=== PATIENT | male | born 1940 | race Caucasian/White ===

== ENCOUNTER 2024-05-08 00:31 | Observation (INO) | payer MEDICARE, OTHER, SELFPAY ==
[2024-05-07 19:06] VITALS: BP 156/94
[2024-05-07 19:31] LABS: % Basophils 0.3 % (0-2); % Eosinophils 1.7 % (0-6); % Immature Granulocytes 0.4 % (0-0.5); % Monocytes 7.5 % (1.7-9.3); % Neutrophils 71.1 % (42.2-75.2); Absolute Eosinophils 0.1 10^3/uL (0-0.7); Absolute Lymphocytes 1.5 10^3/uL (1.2-3.4); Absolute Monocytes 0.6 10^3/uL (0.1-0.6); Absolute Neutrophils 5.5 10^3/uL (1.4-6.5); Hematocrit 48.3 % (39.0-52.0); Hemoglobin 16.4 g/dL (13.0-18.0); Mean Corpuscular Hgb 30.4 pg (27.0-31.0); Mean Corpuscular Volume 89.6 fL (80.0-94.0); Nucleated Red Blood Cells % 0 % (-); Platelet Count 175 10^3/uL (130-400); Red Blood Cell Count 5.39 10^6/uL (4.70-6.10); Red Cell Dist. Width 13.9 % (11.5-14.5); White Blood Cell Count 7.7 10^3/uL (4.8-10.8)
[2024-05-07 19:49] LABS: ALT (SGPT) 36 U/L (0-50); AST (SGOT) 30 U/L (17-59); Albumin 4.3 g/dl (3.5-5.0); Alkaline Phosphatase 64 U/L (38-126); Blood Urea Nitrogen 25 mg/dl (9-20); Calcium 9.9 mg/dl (8.4-10.2); Carbon Dioxide 20 mmol/L (22-30); Glucose 98 mg/dl (70-99); Total Protein 6.8 g/dl (6.3-8.2); eGFR > 60.00
[2024-05-07 19:56] LABS: Chloride 106 mmol/L (98-107); Potassium 4.2 mmol/L (3.5-5.1); Sodium 137 mmol/L (135-145)
[2024-05-07 22:09] VITALS: BP 143/79
[2024-05-07 22:23] VITALS: BMI 25.4
[2024-05-07 22:30] VITALS: BP 151/91
[2024-05-07 23:00] VITALS: BP 133/93
--- NOTE | 2024-05-07 23:23 | ED.GENMED ---
History of Present Illness
General
Chief Complaint: Gait Dysfunction
Source: patient and previous hospital records (ED visit May 2021 with complaints of chest pain. Follow-up unremarkable echocardiogram, unremarkable nuclear stress test and Holter monitor June 2021 showing frequent PACs otherwise unremarkable.)
Exam Limitations: none
Time Seen by Provider: 05/07/24 22:41
Nursing documentation reviewed up to this point in time: agreed with
History of Present Illness
History of Present Illness:
This is an 84-year-old gentleman who resides at home independently. Generally has no limitations in ADLs. He has history of hypertension, hyperlipidemia, BPH and remote history of CVA 14 years ago. Chronically maintained on low-dose aspirin.
He complains of 3 to 4-day history of intermittent dizziness described as a sense of spinning most noted when he lies down to bed and occasionally with rolling over or turning his head quickly. Today however dizziness has worsened accompanied with
feeling off balance, unsteady gait. He has not fallen but he does admit to feeling quite unsteady more so when he attempts to bend over or sit down he has to hold on as his body starts to list.
He denies headache, no nausea nor vomiting, no vision difficulty. He denies chest pain, no palpitations, no coughing or shortness of breath. Appetite has been good.
He states his previous stroke 14 years ago he had somewhat similar dizziness but that stroke was also accompanied with brief difficulty with his speech and also difficulty with writing. He has had no difficulty with his speech, no difficulty with
writing.
He does admit to occasional small bruises on his dorsal hands and forearms and thus occasionally takes his low-dose aspirin every other day instead of every day.
Past History
Past History
ED Past Medical History: Arrthythmia (Frequent PACs), CVA, HTN, Hypercholesterolemia and Other (BPH)
ED Past Surgical History: None
Social History
Tobacco: Non-smoker
Alcohol: None
Drug: None
Personal: ( 2-1/2 years ago)
Living: alone
Employment: Retired
Family History
Family History: Other (Noncontributory)
Phy Exam
Physical Exam
Physical Exam:
GENERAL: 84-year-old gentleman appears somewhat younger than stated age, bright and alert, pleasant, appears in no acute distress. Easily communicative.
EYE: pupils equal and reactive. Extraocular muscles intact. Anicteric
NECK: Supple, nontender, no meningismus, no significant adenopathy.
ENT: posterior pharynx is clear, oral mucosa is moist. TM clear b/l, nares patent.
CARDIAC: Regular rate and rhythm. no murmur.
LUNGS: Clear breath sounds bilaterally, no acute respiratory distress, no wheezes/rales/rhonchi
ABDOMEN: Soft, nondistended, without focal tenderness, no r/g, no cvat. normoactive BS.
NEUROLOGICAL: Alert and oriented x3, motor strength is 5/5 bilaterally. Gross sensation is intact. Positive Romberg's. Mildly antalgic gait.
SKIN: Warm and dry, normal color, skin intact. No rash.
MUSCULOSKELETAL: No C/C/E. peripheral pulses are full and equal b/l. No palpable tenderness.
PSYCH: Normal and appropriate interaction.
Scores
NIH Stroke Score
Level of Consciousness: 0 - Alert
LOC Questions: 0-Answers both correctly
LOC Commands: 0-Performs both correctly
Best Horizontal Gaze: 0-Normal
Visual Kendall: 0=Normal, no visual loss
Facial Palsy: 0=Normal, symmetrical
Motor - Right Arm: 0=No drift 10 seconds
Motor - Left Arm: 0=No drift 10 seconds
Motor - Right Le-No drift 5 seconds
Motor - Left Le-No drift 5 seconds
Limb Ataxia: 0-Absent
Sensation: 0-Normal
Best Language: 0-No aphasia
Dysarthria: 0-Normal
Extinction and Inattention: 0-No abnormality
Total Score:: 0
Course
Orders/Labs/Results
Orders:
Orders
05/07/24 19:11
CT Head W/o Iv Contrast Urgent
Comment:
Reason For Exam: balance issues since this morning
05/07/24 19:15
Complete Blood Count/With Diff Urgent
Comprehensive Metabolic Panel Urgent
05/07/24 22:43
EKG [Electrocardiogram (*1)] Urgent
Reason for Study: Vertigo / Dizzy
EKG- Treatment ONCE
Abnormal Lab Results
05/07/24
19:15
Lymphocytes % 19.0 L %
(20.5-51.1)
Carbon Dioxide 20 L mmol/L
(22-30)
BUN 25 H mg/dl
(9-20)
05/07/24 19:15
05/07/24 19:15
Vital Signs
Initial and Last Documented VS:
Initial Vital Signs
Temp Pulse Resp BP Pulse Ox
98.2 F 91 18 156/94 95
05/07/24 19:06 05/07/24 19:06 05/07/24 19:06 05/07/24 19:06 05/07/24 19:06
Last Documented Vital Signs
Temp Pulse Resp BP Pulse Ox
97.7 F 75 18 151/91 95
05/07/24 22:30 05/07/24 22:45 05/07/24 22:30 05/07/24 22:30 05/07/24 22:45
MDM/Problems Addressed
Differential Diagnosis Includes:
Significant concern for acute/subacute posterior circulation CVA/cerebellar CVA.
Other consideration is benign paroxysmal peripheral vertigo however, patient has multiple risk factors for CVA including hypertension, hyperlipidemia, previous CVA.
Concern for arrhythmia. History is not suggestive of orthostasis.
Labs thus far unremarkable.
CT of the head shows many small to moderate-sized chronic infarcts of both cerebellar hemispheres as well as several old bilateral cerebral strokes. 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 Mild calcific
atherosclerotic plaque in both intracranial vertebral arteries and moderate calcific plaque in the intracranial internal carotid arteries.
Will place on child monitor and check EKG.
Due to CT findings of multiple old strokes, significant concern for acute/subacute posterior circulation stroke.
Patient is at significant risk for recurrent stroke, therefore requires acute hospitalization for further evaluation/neurologic workup.
Chronic conditions affecting care: HTN and Neurological disorder
Acute Exacerbation and/or Progression of Chronic Illness: Neurological disorder
*Radiology
Radiology exam reviewed: radiology read reviewed
*Pulse Oximetry
Patient hypoxic: no
*EKG
Interpreted by ED Provider?: Yes
Comparison EKG: no changes (Unchanged from previous May 2021 save for several PACs are new compared to previous)
Rate: normal
Rhythm: sinus and PAC's
Soper: normal axis
Interval: normal interval
QRS Pattern: normal QRS
Ischemia: no ischemia
*Featherer Interpretation
Rate: normal
Rhythm: sinus and PAC's
*Critical Care Note
Total Time (30-74mins, 75-104mins- exclusive of procedures): Not Applicable
ED Attending Note
-
Portions of this chart may have been created with voice recognition software.� Occasional wrong word or��sound alike� substitutions may have occurred due to the inherent limitations of voice recognition software.
Discharge Plan
Departure
Patient Disposition: Admit
Date of Disposition: 05/07/24
Time of Disposition: 23:27
Admit to: Telemetry
Admit to doctor: Oracio
Presentation/result/management discussed w/ accepting MD/DO: Hospitalist
Condition: Fair
Discharge Problem:
acute/subacute posterior circulation CVA
Prescriptions:
No Action
multivitamin 1 EACH tablet
1 ea PO DAILY
atorvastatin [Lipitor] 40 MG tablet
20 mg PO QPM
aspirin 81 MG tablet,chewable
81 mg PO .EVERYOTHER
Patient Comments:
Patient reports he takes every other day.
lisinopril 40 MG tablet
10 mg PO DAILY
finasteride 5 MG tablet
5 mg PO DAILY
metoprolol tartrate 25 mg Tablet
25 mg PO DAILY
Referrals:
Bee Garcia MD [Family Provider] -
Interventions
Interventions:
*Risk Screen - Suicide Last Done: 05/07/24 19:06
*General Assessment Last Done: 05/07/24 19:06
*Neglect/Abuse Screening Last Done: 05/07/24 19:06
*ED COVID-19 Vaccine History Last Done: 05/07/24 19:06
ED- Neurological Assessment Last Done: 05/07/24 22:32
Discharge Date and Time
Print Language: SINHALA
[2024-05-08] VITALS (11 sets, daily range): BP systolic 108–166; BP diastolic 62–90; PULSE 73–102; BMI 25.3; BMI 25.4
--- NOTE | 2024-05-08 00:26 | HPS.HSE ---
Family Physician
-
Family Physician: Bee Garcia
Chief Complaint
-
Unsteady Gait
History of Present Illness
Patient is an 84y M with PMH significant for hypertension and prior CVA who presents to ED complaining of unsteady gait and dizziness. Patient states that he has felt unsteady on his feet for the past 2 days or so. He notes having to hld onto
furniture, etc as he is walking to prevent loss of balance. He denies any fall or injury. No LOC. He denies any chest pain, dyspnea, fevers / chills, etc.
Patient also reports room spinning sensation that occurs mostly when lying flat in bed at night. This lasts only a few seconds before resolving. This does not occur with side to side head movements.
Patient states that he had a prior stroke about 14 years ago. Symptoms at that time included dysarthria and R hand ataxia. These symptoms fully improved and he reports no chronic deficits.
Medical History
Past Medical History
Past Medical History: Reports Other
Additional Past Medical History:
Hypertension
ASCVD / Prior CVA
BPH
Dyslipidemia
Past Surgical History: Reports Other
Additional Past Surgical History:
T&A
Hernia Repair
R Wrist Surgery
Social History
Tobacco: Non-smoker
Alcohol: Occasional
Drug: None
Family History
Family History: Not pertinent
Allergies / Home Medications
Allergies reflects when Allergies were last updated in [facility].
Home Medications with original date entered in [facility]
Allergy/Medication List:
Allergies
Allergy/AdvReac Type Severity Reaction Status Date / Time
No Known Allergies Allergy Verified 05/07/24 22:24
Home Medications
aspirin 81 mg chewable tablet 81 mg PO .EVERYOTHER 06/20/21
atorvastatin 40 mg tablet (Lipitor) 20 mg PO QPM 06/20/21
finasteride 5 mg tablet 5 mg PO DAILY 06/20/21
lisinopril 40 mg tablet 10 mg PO DAILY 06/20/21
multivitamin 1 ea PO DAILY 06/20/21
metoprolol tartrate 25 mg tablet 25 mg PO DAILY 05/07/24
Review of Systems
-
History Source: Patient
A 12 point ROS was completed and negative except as noted: Yes
Constitutional: Denies Fever or Chills
Respiratory: Denies Cough or Trouble Breathing
Cardiac: Denies Chest Pain or Palpitations
Abdomen/GI: Denies Abdominal Pain, Nausea, Vomiting or Diarrhea
: Denies Dysuria or Frequency
Musculoskeletal: Denies Joint Pain or Edema
Neurological: Reports Dizzy and Other (unsteady gait); Denies Headache
Psych: Denies Depression or Anxiety
Physical Exam
Vital Signs
Vital Signs
Temp Pulse Resp BP Pulse Ox
97.7 F 67 18 133/93 95
05/07/24 22:30 05/07/24 23:45 05/07/24 22:30 05/07/24 23:00 05/07/24 23:45
Physical Exam
General: Other (84y M in no acute distress.)
HEENT: Moist mucous membranes and PERRLA
Respiratory: Clear; No Wheezes, Rales or Rhonchi
Cardiac: S1/S2 and Irregular Rhythm; No Murmur
GI: Soft, Non Tender, Non Distended and Normal Bowel Sounds
Musculoskeletal: No Clubbing, No Cyanosis and No Edema
Neuro: AO x 3 and Other (Strength intact and symmetric. Normal [id number] testing. Unsteady with ambulation.)
Laboratory Results
-
05/07/24 19:15
05/07/24 19:15
Laboratory Results
Total Bilirubin 1.0 mg/dl (0.2-1.3) 05/07/24 19:15
AST 30 U/L (17-59) 05/07/24 19:15
ALT 36 U/L (0-50) 05/07/24 19:15
Alkaline Phosphatase 64 U/L (38-126) 05/07/24 19:15
Impression/Plan
-
A/P: Patient is an 84y M with PMH significant for hypertension and prior CVA who presents to ED complaining of unsteady gait and room spinning.
Ataxia
Dizziness
ASCVD / Prio CVA(s)
- Observe overnight for further evaluation and treatment.
- CT done in the ED shows evidence of multiple, bilateral prior CVAs - including bilateral cerebellar CVAs.
- ASA and Plavix for now.
- Follow neurologic exam for changes.
- Neurology evaluation. MRI in AM.
- Check Echo given multiple / bilateral strokes - ? embolic focus.
- Monitor on telemetry overnight.
- Increase statin to high intensity.
Sinus Arrhythmia
- Patient with long history of sinus arrhythmia - presumably benign.
- Has had evaluation in the past including 48h Holter monitor with no evidence of A-Fib.
- Monitor on tele as noted above.
- Given strokes seen on imaging - ? candidate for Loop recorder, etc.
Benign Hypertension
- Continue current home medications for now.
- Adjust as needed for goal of normotension at discharge.
BPH
- Stable. Continue finasteride.
DVT Prophylaxis: SCDs
Code Status: Full
--- NOTE | 2024-05-08 06:07 | PTCARENOTE ---
Pt arrived 0110 from ED. Pt was able to ambulate from stretcher to bed. VSS. AAOX3. Neurological checks WNL. NIH scale 0. oriented to room and call booker. updated on plan of care. bed locked and in lowest position.
[2024-05-08 06:36] LABS: Hematocrit 45.5 % (39.0-52.0); Hemoglobin 15.6 g/dL (13.0-18.0); Mean Corp Hgb Conc. 34.3 g/dL (33.0-37.0); Mean Corpuscular Hgb 30.8 pg (27.0-31.0); Mean Corpuscular Volume 89.7 fL (80.0-94.0); Mean Platelet Volume 10.7 fL (7.4-10.4); Platelet Count 165 10^3/uL (130-400); Red Blood Cell Count 5.07 10^6/uL (4.70-6.10); Red Cell Dist. Width 13.8 % (11.5-14.5); White Blood Cell Count 7.3 10^3/uL (4.8-10.8)
[2024-05-08 07:27] LABS: Blood Urea Nitrogen 24 mg/dl (9-20); Calcium 9.6 mg/dl (8.4-10.2); Carbon Dioxide 21 mmol/L (22-30); Chloride 106 mmol/L (98-107); Estimated Creatinine Clearance 53 ml/min; Glucose 90 mg/dl (70-99); HDL Cholesterol 50 mg/dl; LDL Cholesterol, Calculated 56 mg/dl; Potassium 4.2 mmol/L (3.5-5.1); Sodium 137 mmol/L (135-145); Total Cholesterol 122 mg/dl (50-199); Triglyceride 82 mg/dl (10-149); Very Low Density Lipoprotein 16 mg/dl (0-30); eGFR > 60.00
[2024-05-08 07:52] LABS: TSH Reflex To Free T4 2.08 uIU/ml (0.47-4.68)
[2024-05-08] MEDS: PLAVIX 75 MG PO (08:13)
[2024-05-08] MEDS: ZESTRIL 10 MG PO (08:13)
[2024-05-08] MEDS: PROSCAR 5 MG PO (08:14)
[2024-05-08] MEDS: LOW STRENGTH ASPIRIN 81 MG PO (08:14)
--- NOTE | 2024-05-08 08:59 | W.PN.HOSP.TC ---
Today's Communication/Plan
-
see bold
Assessment / Plan
Assessment / Plan
#Ataxic gait
Brain MRI negative for acute stroke, does show chronic stroke within the right frontal, bilateral cerebellum, and left caudate/putamen
Discontinue Plavix since there is no stroke
Orthostatic vital signs negative
PT recommends home care
#Vertigo while laying down
Neurology suspects BPPV, resolved
#Dehydration
Gentle IV fluids
#Cognitive impairment
MOCA cognitive screen score = 19/30 (below normal of 26 or higher) w/ deficits with language, abstraction, delayed recall
Check TSH with reflex T4, B12 levels
Recommend outpatient neuropsychiatric evaluation
#History of stroke
Continue aspirin, statin
#Essential hypertension
Continue lisinopril, metoprolol
#BPH
Continue finasteride
DVT prophylaxis�subcu Lovenox
Full code
Physical Exam
General: No acute distress
HEENT: Normocephalic, Atraumatic, EOMI, MMM
Respiratory: Clear to Auscultation bilaterally
Cardiac: Normal S1/S2, Regular Rate and Rhythm
GI: Soft, Nontender, Nondistended, Normal Bowel Sounds
Extremities: No Clubbing, Cyanosis, or Edema
Neuro: Nonfocal/Grossly Intact
Psych: Calm, Cooperative
Derm: No Visible lesions
Anticipated Discharge: Within 24 hours
Subjective/Interval History
-
Date of Service: May 08, 2024
Patient reports vertigo with lying down. No lightheadedness or dizziness with standing. Still feels like his gait is unsteady, though improved from prior. No fever, no vomiting.
Objective Data
-
Labs:
Laboratory Results
05/08/24
05:47
WBC 7.3
Hgb 15.6
Hct 45.5
Plt Count 165
Sodium 137
Potassium 4.2
Chloride 106
Carbon Dioxide 21 L
BUN 24 H
Creatinine 1.1
Glucose 90
Calcium 9.6
Vital Signs:
Vital Signs
Temp Pulse Resp BP Pulse Ox
98.1 F 75 20 124/65 95
05/08/24 08:17 05/08/24 08:17 05/08/24 08:17 05/08/24 08:17 05/08/24 08:17
I&O
05/07/24 05/08/24 05/09/24
06:59 06:59 06:59
Intake Total 120 / 120
Balance 120 / 120
--- NOTE | 2024-05-08 10:32 | CM ---
Reviewed the chart notes and spoke with the patient at the bedside. The patient is admitted under observational status. The SHARMA letter was provided and explained. The patient had no questions with regards to the letter.
The patient resides alone in a third floor condo with elevator access. The patient has a cane, rolling walker, raised toilet seat, and toilet rails. The patient has had VN in the past, but could not recall the name of the agency. No SNF reported.
The patient confirmed his pharmacy of choice is the [facility]. CM continues to be available to patient/family and is monitoring medical plan for needs at discharge.
Plan: Discharge plans will depend on the patient's progress.
[2024-05-08 10:51] LABS: Glycohemoglobin (HgbA1c) 5.6 % (4.0-5.6)
[2024-05-08] MEDS: LOPRESSOR 25 MG PO (12:18)
--- NOTE | 2024-05-08 15:02 | PTOTSP ---
[facility] Evaluations
Oral/pharyngeal swallowing suspected to be within functional limits to continue regular, thin liquid diet at this time. Patient with elevated risk for dysphagia/aspiration given multiple strokes. Monitor closely for clinical signs concerning for
aspiration.
Quick Aphasia Battery Form 1 Wallisian overall score = 9.60. No aphasia. No dysarthria.
MOCA Version 8.1 Wallisian cognitive screener = 19/30 (normal 26 or greater) with mild changes to attention, abstraction, language, and delayed recall.
Recommend:
1. Regular, Thin Liquids
2. Medications as best tolerated
3. [facility] to f/u to determine if further instrumental testing warranted
4. Outpatient cognitive evaluation/tx
--- NOTE | 2024-05-08 15:48 | CON.NEURO ---
Neuro Assessment/Plan
Assessment
Not an acute stroke. Brain MRI imgs rev'd, agree chronic stroke right frontal, bilateral cerebellum, left caudate/putamen
BPPV, appears resolved.
orthostatic tachycardia.
supine bp 124/65, pulse 75
sit bp 133/75, pulse 75
stand 133/90, pulse 102
a little dry? bun 25, cre 1.1.
exam also with a little bit of Parkinsonism - does not appear symptomatic
Plan
IV fluids rehydration, then recheck orthostatic vs to see if resolved
if not then consider trial of midodrine.
Consultation
Order
Date of Consultation: 05/08/24
Requesting Provider: Kellie Jones
Reason for Consult: Dizziness, off balance
Subjective/Objective
Subjective Data
Date of Service: May 08, 2024
Patient is an 84y M with PMH significant for hypertension and prior CVA who presents to ED complaining of unsteady gait and dizziness. Patient states that he has felt unsteady on his feet for the past 2 days or so. He notes having to hold onto
furniture, etc as he is walking to prevent loss of balance. He denies any fall or injury. No LOC.
The room spins for ~10 seconds whenever he lays down, and then it resolves. does not occur when moving head from side to side. this seems to have resolved today. He also reports feeling 'woozy' for a few seconds whenever he sits up or stands up.
Objective Data
Vital Signs
Temp Pulse Resp BP Pulse Ox
36.8 C 70 18 108/62 96
05/08/24 15:44 05/08/24 15:44 05/08/24 15:44 05/08/24 15:44 05/08/24 15:44
Lab Results
05/08/24 05:47
05/08/24 05:47
Sodium 137 mmol/L (135-145) 05/08/24 05:47
Potassium 4.2 mmol/L (3.5-5.1) 05/08/24 05:47
BUN 24 mg/dl (9-20) H 05/08/24 05:47
Glucose 90 mg/dl (70-99) 05/08/24 05:47
Calcium 9.6 mg/dl (8.4-10.2) 05/08/24 05:47
LDL Cholesterol, Calc 56 mg/dl 05/08/24 05:47
Patient Allergies
No Known Allergies Allergy (Verified 05/07/24 22:24)
Physical Exam
-
Awake and alert
speech clear
VFF, EOMI, face symmetric
full strength b/l UE/LE
+bradykinesia and cogwheel more on the right
Medications
-
Active Medications
Generic Name Dose Route Start Last Admin
Trade Name Freq PRN Reason Stop Dose Admin
Acetaminophen 650 mg 05/08/24 01:37
Acetaminophen 325 Mg Tablet PO 06/05/24 01:36
Q4HPRN PRN
Mild Pain / Temp > 101
Aspirin 81 mg 05/08/24 08:00 05/08/24 08:14
Aspirin 81 Mg Chewable Tablet PO 06/05/24 07:59 81 mg
DAILY ALDO Administration
Atorvastatin Calcium 40 mg 05/08/24 18:00
Atorvastatin (Lipitor) 40 Mg Tablet PO 06/05/24 17:59
QPM ALDO
Clopidogrel Bisulfate 75 mg 05/08/24 08:00 05/08/24 08:13
Clopidogrel 75 Mg Tablet PO 06/05/24 07:59 75 mg
DAILY ALDO Administration
Finasteride 5 mg 05/08/24 08:00 05/08/24 08:14
Finasteride 5 Mg Tablet PO 06/05/24 07:59 5 mg
DAILY ALDO Administration
Lisinopril 10 mg 05/08/24 08:00 05/08/24 08:13
Lisinopril 10 Mg Tablet PO 06/05/24 07:59 10 mg
DAILY ALDO Administration
Metoprolol Tartrate 25 mg 05/08/24 08:28 05/08/24 12:18
Metoprolol 25 Mg Regular Release Tablet PO 06/05/24 07:59 25 mg
DAILY@1200 ALDO Administration
Home Medications
�Medication �Instructions �Recorded
aspirin 81 mg chewable tablet 81 mg PO .EVERYOTHER 06/20/21
atorvastatin 40 mg tablet (Lipitor) 20 mg PO QPM 06/20/21
finasteride 5 mg tablet 5 mg PO DAILY 06/20/21
lisinopril 40 mg tablet 10 mg PO DAILY 06/20/21
multivitamin 1 ea PO DAILY 06/20/21
metoprolol tartrate 25 mg tablet 25 mg PO DAILY 05/07/24
[2024-05-08] MEDS: NSS 1000 IV (16:14)
[2024-05-08] MEDS: LOVENOX 40 MG SC (17:19)
[2024-05-09 03:20] VITALS: BP 116/65
[2024-05-09] MEDS: NSS 1000 IV (05:27)
[2024-05-09 05:36] VITALS: BMI 25.7
[2024-05-09 07:55] VITALS: BP 112/76
[2024-05-09] MEDS: LOW STRENGTH ASPIRIN 81 MG PO (09:00)
[2024-05-09] MEDS: PROSCAR 5 MG PO (09:00)
[2024-05-09] MEDS: ZESTRIL 10 MG PO (09:00)
--- NOTE | 2024-05-09 09:06 | W.PN.HOSP.TC ---
Today's Communication/Plan
-
Discharge home today
Assessment / Plan
Assessment / Plan
#Ataxic gait
Brain MRI negative for acute stroke, does show chronic stroke within the right frontal, bilateral cerebellum, and left caudate/putamen
Discontinued Plavix since there is no stroke
Orthostatic vital signs negative
PT recommends home care
Medically stable for discharge today
#Vertigo while laying down
Neurology suspects BPPV, resolved
#Dehydration
Resolved with IV fluids
#Cognitive impairment
MOCA cognitive screen score = 19/30 (below normal of 26 or higher) w/ deficits with language, abstraction, delayed recall
TSH normal
Recommend outpatient neuropsychiatric evaluation, son informed
#History of stroke
Continue aspirin, statin
#Essential hypertension
Continue lisinopril, metoprolol
#BPH
Continue finasteride
#Hyperlipidemia
Continue statin
DVT prophylaxis�subcu Lovenox
Full code
Physical Exam
General: No acute distress
HEENT: Normocephalic, Atraumatic, EOMI, MMM
Respiratory: Clear to Auscultation bilaterally
Cardiac: Normal S1/S2, Regular Rate and Rhythm
GI: Soft, Nontender, Nondistended, Normal Bowel Sounds
Extremities: No Clubbing, Cyanosis, or Edema
Neuro: Nonfocal/Grossly Intact
Psych: Calm, Cooperative
Derm: No Visible lesions
Anticipated Discharge: Today
Subjective/Interval History
-
Date of Service: May 09, 2024
Patient's gait is improved. No lightheadedness or dizziness with standing. No fever, no vomiting.
Objective Data
-
Vital Signs:
Vital Signs
Temp Pulse Resp BP Pulse Ox
97.9 F 71 18 112/76 94
05/09/24 07:55 05/09/24 07:55 05/09/24 07:55 05/09/24 07:55 05/09/24 07:55
I&O
05/08/24 05/09/24 05/10/24
06:59 06:59 06:59
Intake Total 120 / 120 510 / 510
Balance 120 / 120 510 / 510
[2024-05-09 10:20] VITALS: BP 123/78; BP 126/78; BP 127/77; PULSE 111; PULSE 82; PULSE 92
--- NOTE | 2024-05-09 11:06 | CM ---
Patient seen bedside.
Patient agreeable to home with [facility] if needed.
Ambulating in room with some dizziness per patient.
Patient has transportation home.
PT recommending acute rehab.
Plan: home with possible VN vs outpatient therapy
[2024-05-09 11:13] VITALS: BP 105/69
--- NOTE | 2024-05-09 11:20 | W.DCSUMMARY ---
Discharge Summary
Discharge Data
Date of Admission: 05/08/24
Date of Discharge: 05/09/24
-
Pending Results: No
Hospital Course
Discharge diagnosis:
Ataxic gait
Resolved vertigo
Dehydration
Cognitive impairment
History of previous stroke
Essential hypertension
Benign prostatic hypertrophy
Hyperlipidemia
Consults: Neurology
Brain MRI:
No acute intracranial abnormality noted.
Mild parenchymal volume loss with small foci of encephalomalacia in the right frontal lobe and left parietal lobe. Infarctions within the bilateral cerebellar hemispheres as well as the left caudate/putamen.
Focus of blooming artifact along the right insula/subinsular white matter consistent with sequelae of prior hematoma/hemorrhage.
Hospital course:
84-year-old male with a past medical history of stroke, hypertension, hyperlipidemia, and BPH presented with intermittent vertigo and ataxic gait. Patient was seen in conjunction with neurology. Patient experiences intermittent vertigo while
laying down. Neurology suspects that he had BPPV that has resolved. Patient was found to have an ataxic gait. Brain MRI was negative for acute stroke, does show previous stroke with encephalomalacia. Neurology thought he may have been
dehydrated. He was given IV fluids, and his gait improved.
Patient was seen in conjunction with PT/OT, who recommended home care. Patient was found to have cognitive impairment. He scored 19 out of 30 on the MoCA. Normal is 26. Neurology notes that patient has some signs of parkinsonism on exam, however
he was not symptomatic. This was relayed to the son. Recommend that he undergo neuropsychiatric testing outpatient.
Patient is medically stable for discharge. He needs to follow-up with his primary care doctor in 1 week and neuropsychiatry in the office in 3-4 weeks.
Disposition: Home self-care
Discharge planning: Required 39 minutes
Discharge Plan
-
Patient Disposition: Home with Home Care
Discharge Diagnosis/Procedures: Weakness, dehydration, resolved vertigo, old stroke, cognitive impairment
Condition: Fair
Diet: Low Fat and Low Cholesterol
Activity: As tolerated
Driving Restrictions: As prior to admission
Other Services: VN and PT
Activity Restrictions/Additional Instructions:
You had testing that showed cognitive impairment.
Recommend you follow-up with neuropsychiatry in the office for official cognitive testing.
Recommend you take aspirin 81 mg daily, not every other day.
Follow-up with your primary care doctor in 1 week.
Referrals:
Micheal Pereyra PSY [Specified Professional Personl] - in two to three weeks
Bee Garcia MD [Family Provider] - in one week
Prescriptions:
Continued
multivitamin 1 EACH tablet
1 ea PO DAILY
atorvastatin [Lipitor] 40 MG tablet
20 mg PO QPM
lisinopril 40 MG tablet
10 mg PO DAILY
finasteride 5 MG tablet
5 mg PO DAILY
metoprolol tartrate 25 mg Tablet
25 mg PO DAILY
Changed
aspirin 81 MG tablet,chewable
81 mg PO DAILY Qty: 0 0RF
Patient Comments:
Patient reports he takes every other day.
Discharge Orders:
Discharge Patient (As Directed); Ordered 05/09/24
Ordered By: Amadou Jones
Discharge Date and Time
Discharge Date/Time: 05/09/24 13:44
Print Language: SURINAMESE
[2024-05-09] MEDS: LIPITOR 20 MG PO (11:36)
[2024-05-09] MEDS: PREVNAR 20 0.5 ML IM (11:37)
--- NOTE | 2024-05-09 12:40 | VNURNOTE ---
Home Health Liaison spoke with patient to discuss [facility] nurse/therapy, visits, schedule and homebound status. Patient is agreeable and understands that visits at home will be 2-3 x per week to assess and teach medical management. Patient is aware
that [facility] will contact them for start of care in 1-2 days after discharge from . [facility] referral completed in [facility].
[2024-05-09] MEDS: LOPRESSOR 25 MG PO (12:48)
== END 2024-05-09 13:44 | disposition home health service (06) ==
LOC: 2 SOUTH 00:31
PROVIDERS: Emergency Medicine; ADMITTING PHYSICIAN Hospitalist; ATTENDING PHYSICIAN Family Medicine; CONSULT PHYSICIAN Psychiatry & Neurology Clinical Neurophysiology; EMERGENCY PHYSICIAN Emergency Medicine; FAMILY PHYSICIAN Internal Medicine
DX: R26.0 Ataxic gait (principal); R26.9 Unspecified abnormalities of gait and mobility; I10 Essential (primary) hypertension; N40.0 Benign prostatic hyperplasia without lower urinary tract symptoms; E78.00 Pure hypercholesterolemia, unspecified; R42 Dizziness and giddiness; R26.81 Unsteadiness on feet; R47.1 Dysarthria and anarthria; I25.10 Atherosclerotic heart disease of native coronary artery without angina pectoris; I49.8 Other specified cardiac arrhythmias; G20.C Parkinsonism, unspecified; M50.30 Other cervical disc degeneration, unspecified cervical region; I35.0 Nonrheumatic aortic (valve) stenosis; I70.0 Atherosclerosis of aorta; G93.89 Other specified disorders of brain; E86.0 Dehydration; R41.89 Other symptoms and signs involving cognitive functions and awareness; Z79.82 Long term (current) use of aspirin; Z79.02 Long term (current) use of antithrombotics/antiplatelets; Z86.73 Personal history of transient ischemic attack (TIA), and cerebral infarction without residual deficits; Z23 Encounter for immunization; Z60.2 Problems related to living alone
CPT/HCPCS: 70450; 70551; 80048; 80053; 80061; 83036; 84443; 85025; 85027; 90677; 92523; 92610; 93005; 93306; 97163; 97166; 99285; G0009; G0378

== ENCOUNTER → 2024-05-23 08:10 | Outpatient (REF) | payer MEDICARE, OTHER, SELFPAY | LOC: RAD 08:10 | PROVIDERS: ATTENDING PHYSICIAN Internal Medicine Cardiovascular Disease; FAMILY PHYSICIAN Internal Medicine | DX: I10 Essential (primary) hypertension (principal); I35.0 Nonrheumatic aortic (valve) stenosis; I25.10 Atherosclerotic heart disease of native coronary artery without angina pectoris; E78.00 Pure hypercholesterolemia, unspecified | CPT/HCPCS: 93880 ==

== ENCOUNTER 2024-06-13 11:46 | Day surgery (SDC) | payer MEDICARE, OTHER, SELFPAY ==
--- NOTE | 2024-06-13 13:06 | ITS.CL.IMPLP ---
[employer] - Implant Loop
Implant Loop
Procedure Report:
ILR
Date of Procedure: June 13, 2024
Patient : [id number]
Procedure: Insertable Loop Recorder Implant
Indication: Cryptogenic stroke
Implant: Reveal Linq: [employer]; Model# [id number]; Serial# [id number]
Technique: The patient was prepped and draped in the usual fashion.��Local anesthetic was applied to the left��prepectoral subcutaneous tissue. A subcutaneous pocket was created with blunt dissection. Hemostasis was excellent. The device was placed
in the pocket. The skin was closed with steri-strips. The estimated blood��loss was minimal. There were no complications.
Final Programming: FVT 231 30/40 beats
����������������������������������VT 176 16 beats
����������������������������������Asystole 3 sec
����������������������������������Zachery 30 bpm for 4 beats
����������������������������������AF On AF only.
Conclusion: Uncomplicated insertable loop implant.
Recommendation: Routine [facility] care.
cc: Dr. Kamran Cleary
== END 2024-06-13 13:32 | disposition home or self-care (01) ==
LOC: CATH 11:46
PROVIDERS: ATTENDING PHYSICIAN Internal Medicine Cardiovascular Disease; FAMILY PHYSICIAN Internal Medicine; OTHER PHYSICIAN Internal Medicine Cardiovascular Disease
DX: Z09 Encounter for follow-up examination after completed treatment for conditions other than malignant neoplasm (principal); R42 Dizziness and giddiness; Z86.73 Personal history of transient ischemic attack (TIA), and cerebral infarction without residual deficits; I10 Essential (primary) hypertension; E78.5 Hyperlipidemia, unspecified; N40.0 Benign prostatic hyperplasia without lower urinary tract symptoms; Z79.82 Long term (current) use of aspirin
CPT/HCPCS: 33285; C1764